=== PATIENT | female | born 1940 | race Caucasian/White ===

== ENCOUNTER → 2021-07-10 | Outpatient (CLI) | payer OTHER ==
[~2021-07-10] MED LIST: ARICEPT10 MG PO; ASPIRIN CHEWABL81 MG PO; CORDARONE 200M200 MG PO; HYDROCHLOROTH12.5 M1 PO; LISINOPRIL40 MG PO; LORTAB 5-325 M1 EACH PO; METAMUCIL SMOOTH1 EA PO; METOPROLOL SUCC25 MG PO; PRAVACHOL40 MG PO; SYNTHROID 50 M50 MCG PO; ZYRTEC10 M3 PO
== END ==
LOC: HEART CORB 09:28
DX: I25.10 Atherosclerotic heart disease of native coronary artery without angina pectoris (principal); R01.1 Cardiac murmur, unspecified; Z86.79 Personal history of other diseases of the circulatory system; I08.8 Other rheumatic multiple valve diseases; I27.20 Pulmonary hypertension, unspecified
CPT/HCPCS: 93306